=== PATIENT | female | born 1955 ===

== ENCOUNTER 2019-03-10 06:05 | Day surgery (SDC) | payer BC ==
[2019-03-08 15:15] VITALS: BMI 27.1
[2019-03-10] MEDS ORDERED: PROPOFOL 20 ML ONE ×2 (07:13→08:10)
[2019-03-10] MEDS ORDERED: EPHEDRINE SULFATE/0.9% NACL/PF 50 MG/10 ML SYRINGE NR ONE (07:13)
[2019-03-10] MEDS ORDERED: MIDAZOLAM HCL 2 MG/2 ML SINGLE DOSE VIAL ONE (07:14)
[2019-03-10] MEDS ORDERED: BUPIVACAINE HCL/PF 0.5% (5 MG/ML) 30 ML VIAL IJ ONE (07:56)
[2019-03-10] MEDS ORDERED: LIDOCAINE HCL 1%, 10 MG/ML (20ML VIAL) NR ONE (07:57)
[2019-03-10] MEDS ORDERED: BACITRACIN 50,000 UNITS VIAL NR ONE (07:58)
[2019-03-10] MEDS ORDERED: KETOROLAC TROMETHAMINE 30 MG/1 ML VIAL ONE (08:42)
[2019-03-10 09:02] VITALS: TEMP 97.6
[2019-03-10] MEDS ORDERED: oxyCODONE HCL 5 MG TABLET PO PRN ×2 (10:46)
[2019-03-10] MEDS ORDERED: ONDANSETRON 4 MG/2 ML VIAL IVPUSH PRN (10:46)
[2019-03-10] MEDS ORDERED: LACTATED RINGERS SOLUTION 1,000 ML IV SCH (11:00)
--- NOTE | 2019-03-10 11:35 | OP ---
Operative Note - Note: Operative Date: 03/10/19 Pre-Operative Diagnosis: Metatarsal cuneiform Exostosis left foot Operation: Excision of painful exostosis left foot Findings: hypertrophic bone and soft tissue Post-Operative Diagnosis: Same as Pre-op Surgeon: Dian Jason Rail Track Maintainer: Chapo Krishnamurthy Anesthesia: Local, MAC Specimens Removed: bone soft tissue Estimated Blood Loss (mls): 2 Operative Report Dictated: No
[2019-03-10 11:40] VITALS: BP 108/70; PULSE 70
--- NOTE | 2019-03-11 18:34 | PATH ---
Surgical Pathology Report Patient Name: JEREMIE MAYS [facility]. Rec. #: [id number] /Age/Gender: 1955 (Age: 64) / F Account: [id number] Location: [facility] SURGICAL Taken: 03/10/2019 Received: 03/10/2019 Reported: 03/11/2019 Physicians: Dian Jason DPM Specimen(s) Received BONE LEFT DORSAL FOOT Clinical History Left foot bone spurs Final Diagnosis BONE, DORSAL FOOT, LEFT, EXCISION OF BONE SPURS: BONE AND CARTILAGE WITH DEGENERATIVE CHANGES, DENSE FIBROCONNECTIVE TISSUE, FIBROADIPOSE TISSUE, AND SKELETAL MUSCLE. Electronically Signed Yuly Russo M.D. Gross Description Received in formalin labeled "bone from the left dorsal foot" are multiple irregular fragments of white-newberry, bone and soft tissue measuring 2 x 2 x 0.5 cm in aggregate. The entire specimen is submitted after decalcification in one cassette. MLSZ/03/10/2019 sandonita/03/10/2019
--- NOTE | 2019-03-18 20:41 | OP ---
DATE OF OPERATION: 03/10/2019 SURGEON: Dian Jason DPM PRACTICE PHYSICIAN: Chapo Krishnamurthy DPM PREOPERATIVE DIAGNOSIS: Metatarsal cuneiform exostosis left foot. POSTOPERATIVE DIAGNOSIS: Metatarsal cuneiform exostosis left foot. DESCRIPTION OF PROCEDURE: After noting all preoperative vital signs were within normal limits and the surgical consent was signed and witnessed, the patient was brought to the OR and placed on a table in supine position. Once the patient was placed on the table, the patient's foot was then prepped and draped in the usual sterile fashion. Utilizing palpation, the dorsalis pedis artery was marked. This was medial to the exostosis that was being surgically removed. Once this was identified, an incision was created in a lazy S fashion over the metatarsal cuneiform exostosis. This incision was deepened using sharp and blunt dissection. All unavoidable vessels were ligated in the usual fashion. All other neurovascular structures were retracted out of surgical site. Once this was done, the exostosis was identified. Utilizing an osteotome and a mallet, the exostosis was resected. The area was palpated. The remaining spicules were remodeled using a reciprocating rasp. Once this was done, the area was once again palpated. There were no spicules noted. A flushing was then done with copious amounts of sterile saline that had antibiotic added to it. There was no exostosis remaining in that area. The wound was then closed in layers utilizing 3-0 Vicryl and 4-0 Vicryl in subcutaneous tissues in a simple interrupted suture fashion. Skin was then closed using 5-0 Vicryl in a subcuticular fashion. Tincture of benzoin and Steri-Strips were then applied. Betadine soaked Adaptic, dry sterile gauze, and a Armond dressing were then applied. The tourniquet was deflated, and capillary filling time was instantaneous to all 5 toes of the left foot. Patient tolerated the anesthesia and procedure well. Patient returned to the recovery room vital signs stable, and vascular status intact. WENDY Rodriguez/[id number]
== END 2019-03-10 11:39 | disposition home or self-care (01) ==
LOC: JASU-SURG 06:05
PROVIDERS: ATTEND Podiatrist Foot Surgery
PROC: 0QBP0ZZ Excision of Left Metatarsal, Open Approach (ICD-10-PCS; principal; 2019-03-10 07:30)
DX: M25.775 Osteophyte, left foot (principal)
CPT/HCPCS: 73630-TC-LT; 88304-TC; 88311-TC